=== PATIENT | male | born 1975 | race Caucasian/White ===

== ENCOUNTER 2020-10-14 15:35 | Emergency (ER) | payer BC ==
[2020-10-14] MEDS ORDERED: HYDROCODON-ACE1 EAC4 PO (20:41)
[2020-10-14] MEDS ORDERED: AUGMENTIN 875-1 EACH PO (21:50)
== END 2020-10-14 22:00 | disposition home or self-care (01) ==
LOC: ER1 15:35
DX: S61.312A Laceration without foreign body of right middle finger with damage to nail, initial encounter (principal); I10 Essential (primary) hypertension; Z23 Encounter for immunization; W23.0XXA Caught, crushed, jammed, or pinched between moving objects, initial encounter; Y92.89 Other specified places as the place of occurrence of the external cause; Y99.0 Civilian activity done for income or pay; Z20.822 Contact with and (suspected) exposure to COVID-19
CPT/HCPCS: 11760; 73130; 87635; 90471; 90714; 99283; J0690

== ENCOUNTER 2021-02-01 06:55 | Emergency (ER) | payer BC ==
[~2021-02-01 06:55] MED LIST: AUGMENTIN 875-1 EACH PO; HYDROCODON-ACE1 EAC4 PO
[2021-02-01] MEDS ORDERED: IBUPROFEN800 MG PO (07:56)
[2021-02-01] MEDS ORDERED: CYCLOBENZAPRINE5 MG PO (07:56)
== END 2021-02-01 08:20 | disposition home or self-care (01) ==
LOC: ER1 06:55
DX: S39.92XA Unspecified injury of lower back, initial encounter (principal); I10 Essential (primary) hypertension; X50.0XXA Overexertion from strenuous movement or load, initial encounter; Y92.89 Other specified places as the place of occurrence of the external cause; Y99.0 Civilian activity done for income or pay
CPT/HCPCS: 93005; 96372; 99283; J1885